=== PATIENT | male | born 1990 | race Caucasian/White ===

== ENCOUNTER 2019-03-20 07:20 | Emergency (ER) | payer OTHER ==
[~2019-03-20] VITALS: Ht 177.8 cm; Wt 77.1 kg
[~2019-03-20 07:20] MED LIST: ALBU90OI; ALBU90OI INH; AMOX500 PO; AZIT250 PO; CYCL10 PO; FLUT110OIA IH; HYDACE5 PO; IBUP800 PO; NAPR500 PO; NEOCOLOTSU LEFTEAR; NEOPOLHCSU OT; PROM25 PO
[2019-03-20 08:52] LABS: BASOPHILS ABSOLUTE AUTO 0.09 K/mm3 (0.00-0.23); BASOPHILS PERCENT AUTO 1 % (0-2); EOSINOPHILS PERCENT AUTO 10 % (0-6); Hematocrit 41.2 % (37.0-53.0); Hemoglobin 14.1 g/dL (13.5-17.5); IMMATURE GRAN ABSOLUTE AUTO 0.02 K/mm3 (0.00-0.10); IMMATURE GRAN PERCENT AUTO 0 % (0-1); LYMPHOCYTES PERCENT AUTO 25 % (21-46); MONOCYTES ABSOLUTE AUTO 0.81 K/mm3 (0.16-1.47); MONOCYTES PERCENT AUTO 11 % (4-13); Mean Corpuscular HGB 32.1 pg (26.0-34.0); Mean Corpuscular HGB Conc 34.2 g/dL (31.5-36.5); Mean Corpuscular Volume 94 fL (80-100); Mean Platelet Volume 9.3 fL (9.1-12.4); NEUTROPHILS ABSOLUTE AUTO 4.08 K/mm3 (1.96-9.15); NEUTROPHILS PERCENT AUTO 53 % (41-73); Platelet Count 257 K/mm3 (150-400); Red Blood Cell Count 4.39 M/mm3 (4.30-5.90)
[2019-03-20 09:03] LABS: Source, Urine Clean Catch
[2019-03-20 09:06] LABS: Bilirubin, Urine Neg (Neg); Blood, Urine Neg (Neg); Glucose Qualitative, Urine Neg (Neg); Ketones, Urine Neg (Neg); Leukocyte Esterase, Urine Neg (Neg); Nitrite, Urine Neg (Neg); Protein, Urine Neg (Neg); Specific Gravity, Urine 1.015 (1.003-1.022); Urobilinogen, Urine NORM (Normal)
[2019-03-20 09:07] LABS: Appearance, Urine Clear (Clear); Color, Urine Yellow (P-Yellow)
[2019-03-20 09:23] LABS: Alanine Aminotransfer (ALT/SGP 30 U/L (12-78); Albumin, Blood 3.9 g/dL (3.4-5.0); Albumin/Globulin Ratio 1.1 (0.8-1.8); Alk Phos 60 U/L (50-136); Anion Gap 4 mmol/L (6-16); Aspartate Aminotrans (AST/SGOT 18 U/L (12-37); Bilirubin, Total 0.4 mg/dL (0.1-1.0); Blood Urea Nitrogen 14 mg/dL (8-24); Bun/Creatinine Ratio 13.6 (12.0-20.0); CO2, Blood 28 mmol/L (21-32); Calcium, Blood 8.4 mg/dL (8.5-10.1); Chloride, Blood 105 mmol/L (98-108); Creatinine, Blood 1.03 mg/dL (0.60-1.20); Globulin, Blood 3.6 g/dL (2.2-4.0); Glomerular Filtration Rate >60 (60-); Glucose, Blood 110 mg/dL (70-99); Potassium, Blood 4.2 mmol/L (3.5-5.5); Sodium, Blood 137 mmol/L (136-145); Total Protein, Blood 7.5 g/dL (6.4-8.2)
== END 2019-03-20 09:54 | disposition home or self-care (01) ==
LOC: ER 07:20
PROVIDERS: Physician Assistant
DX: R10.9 Unspecified abdominal pain (principal); Z87.891 Personal history of nicotine dependence
CPT/HCPCS: 36415; 74176; 80053; 81003; 83690; 85025; 99284-25; Q9967

== ENCOUNTER 2021-03-23 07:47 | Emergency (ER) | payer OTHER ==
[~2021-03-23] VITALS: Ht 175.3 cm; Wt 83.9 kg
[2021-03-23] MEDS ORDERED: Bactrim Ds Tab1 EACH PO (08:01)
[2021-03-23] MEDS ORDERED: NEOPOLHCSU RIGHTEAR (08:01)
== END 2021-03-23 08:06 | disposition home or self-care (01) ==
LOC: ER 07:47
DX: H66.91 Otitis media, unspecified, right ear (principal); H60.91 Unspecified otitis externa, right ear; F17.200 Nicotine dependence, unspecified, uncomplicated
CPT/HCPCS: 99282; A9270

== ENCOUNTER 2022-06-03 06:16 | Day surgery (SDC) | payer OTHER ==
[~2022-06-03] VITALS: Ht 175.3 cm; Wt 82.7 kg
[~2022-06-03 06:16] MED LIST changes: +Bactrim Ds Tab1 EACH PO; +NEOPOLHCSU RIGHTEAR
[2022-06-03] MEDS ORDERED: SERT50 PO (06:32)
[2022-06-03] MEDS ORDERED: ALBU90OI INH (06:38)
[2022-06-03] MEDS ORDERED: IBUP800 PO (06:39)
[2022-06-03] MEDS ORDERED: OMEP20ER (06:39)
--- NOTE | 2022-06-03 08:06 | NUR ---
06/03/22 0806 MAUREEN GRANT 0.05MG OF EPI (1MG/1ML) ADDED TO 10MLS OF LIDOCAINE 1% TO CREATE A LOCAL SOLUTION OF LIDOCAINE 1% WITH EPI 1:200,000. 2MLS OF LOCAL INJECTED INTO RIGHT EAR AREA BEFORE START OF CASE BY DR. KING. 5MLS OF LOCAL POURED ONTO STERILE FIELD FOR USE DURING CASE.
--- NOTE | 2022-06-03 12:40 | NUR ---
06/03/22 1240 JULEE CASTILLO PT VOIDED 400ML CLEAR YELLOW URINE IN URINAL AT BEDSIDE
== END 2022-06-03 13:51 | disposition home or self-care (01) ==
LOC: ORSCSDS 06:16
PROVIDERS: Otolaryngology
PROC: 0NR507Z Replacement of Right Temporal Bone with Autologous Tissue Substitute, Open Approach (ICD-10-PCS; principal; 2022-06-03 07:30)
DX: H71.01 Cholesteatoma of attic, right ear (principal); H90.6 Mixed conductive and sensorineural hearing loss, bilateral; J45.909 Unspecified asthma, uncomplicated; F17.210 Nicotine dependence, cigarettes, uncomplicated; F32.A Depression, unspecified; Z79.899 Other long term (current) drug therapy
CPT/HCPCS: A9270; J0171; J1100; J2001; J2250; J2405; J2704; J3010; J3301; J7120